=== PATIENT | female | born 1980 | race Caucasian/White ===

== ENCOUNTER 2019-11-19 22:29 | Emergency (ER) | payer OTHER, MEDICAID ==
[~2019-11-19] VITALS: Ht 167.6 cm; Wt 96.0 kg
[2019-11-19] MEDS ORDERED: IBUPROFEN 600MG TABLET PO ONE (23:15)
[2019-11-20 03:26] VITALS: BP 125/69
== END 2019-11-20 03:36 | disposition home or self-care (01) ==
LOC: ER 22:41
DX: R07.89 Other chest pain (principal); F41.9 Anxiety disorder, unspecified; E78.00 Pure hypercholesterolemia, unspecified
CPT/HCPCS: 71045; 93005; 99283